=== PATIENT | male | born 1990 | race Caucasian/White ===

== ENCOUNTER 2016-12-28 10:39 | Emergency (ER) | payer OTHER ==
[~2016-12-28] VITALS: Ht 182.9 cm; Wt 68.2 kg
[2016-12-28 10:42] VITALS: BP 125/72; PULSE 63; RESP 10; O2SAT 100
--- NOTE | 2016-12-28 10:50 | ED.REPORT ---
HPI-Extremity Problem Upper Date of Service Dec 28, 2016 ED Provider: Dr. James A right handed 26 year old male presents to the ED complaining of right wrist and right hand pain and swelling onset yesterday at 1430 s/p patient falling after they tripped over a dog on the way out of their house, his outstretched right hand landing onto concrete slab outside the front door. Pain is constant and is rated 5/10 without movement and 7-10/10 with movement. The patient took ibuprofen yesterday reports that his wrist hurt after fall but he could still move it. Today he cannot move it because of the pain. Associated pain in right small and ring finger. He denies any numbness, any other injuries or any other pain at this time. He thinks that he is up to date with tetanus shot. Nursing Notes Stated Complaint: RT HAND INJURY Chief Complaint: Extremity Trauma Nursing Notes Reviewed: Yes Allergies: Coded Allergies: Penicillins (Verified Allergy, Severe, anaphylaxis, 12/28/16) Scheduled PRN Hydrocodone-Acetaminophen 5-325 mg (Hydrocodone-Acetaminophen 5-325 mg) 1 Each Tablet 1 TABLET PO Q4H PRN PRN For Pain General Time Seen by MD: 10:49 Chief Complaint Wrist injury right Hx Obtained From: Patient Arrived By: Walk-in Onset Occurred: Yesterday (yesterday, 1430) Symptom Duration: Since onset Caused by: Fall on ground Location: : Hand right: Wrist right Severity: Current: Pain level 5 out of 10 (without movement) Severity: Maximum: Pain level 10 out of 10 (with movement) Exacerbated by: Range of motion, Movement Recent Healthcare: No recent doctor visit Similar Sx Previous: No Past Medical History Past Medical History none reported. Past Surgical History none reported. Ambulatory Status Independent Review of Systems Musculoskeletal: Reports: Extremity pain (right wrist, right hand , right fingers), Extremity swelling (right wrist) Neurologic: Denies: Numbness Complete sys rev & neg: except as marked. Physical Exam Initial Vital Signs Vital Signs (First) Date Time Temp Pulse Resp B/P Pulse Ox O2 Delivery O2 Flow Rate FiO2 12/28/16 10:42 37.0 63 10 125/72 100 Room Air Initial VS: Reviewed, Vital signs normal General/Constitutional: Well-developed, Well-nourished Head / Eyes: Atraumatic, Normocephalic, PERRL General/Constitutional: Awake, Alert Respiratory / Chest: Atraumatic, Breath sounds NL, Breath sounds = bilat, No respiratory distress, No rales, No rhonchi, No wheezing Cardiovascular: Heart rate NL, Regular rhythm, Heart sounds NL, No gallop, No murmurs, No rubs Right Wrist: Positive: Swelling present... (swelling just distal to the right wrist), Tenderness present... (Pain of right wrist.) Right Hand: Positive: Tenderness present... (Pain to palpation of his whole posterior hand. ) Sensation and movement intact. Skin: Warm, Dry Neurologic: Oriented X3, Speech NL Head / Eyes: Atraumatic, Normocephalic, PERRL, EOMI Abdomen: No guarding, No rebound Interpretation & Diagnostics Lab Results Interpretation Lab Results Interpretation: PROCEDURE: CT WRIST RIGHT W/O CONTRAST ([id number]) IMPRESSION: 1. Moderate displacement of an oblique intra-articular fracture of the dorsal hamate. 2. Nondisplaced oblique fracture involving the base of the 4th metacarpal. 3. Soft tissue swelling of the wrist with a midcarpal effusion. 4. Possible old small avulsion injury of the capitate. Dictated by: Joey Griffith M.D. on 12/28/2016 at 12:09 Approved by: Joey Griffith M.D. on 12/28/2016 at 12:14 X-Ray Interpretation Xray Interpretation: PROCEDURE: X-RAY RIGHT WRIST COMPLETE, MINIMUM THREE VIEWS ([id number]) IMPRESSION: No acute fracture of the right wrist. Dictated by: Joey Griffith M.D. on 12/28/2016 at 10:47 Approved by: Joey Griffith M.D. on 12/28/2016 at 10:50 ADDENDUM: Closer review of the wrist radiographs demonstrates a possible subtle lucency and mild cortical irregularity along the dorsal aspect of the hamate, suspicious for fracture. Clinical correlation with point tenderness overlying this region is recommended. A CT of the wrist would be helpful for further evaluation. Note: Findings were discussed with Kate James at 1204 hours (EST) on 12/28/16. Dictated by: Joey Griffith M.D. on 12/28/2016 at 11:07 Approved by: Joey Griffith M.D. on 12/28/2016 at 11:08 Report status: Addendum REPORT#: [id number] X-Ray Ordered: Wrist right Interpretation / Wet Read by: Interpret - Radiologist Xray Interpretation: PROCEDURE: X-RAY RIGHT HAND, MINIMUM THREE VIEWS ([id number]) IMPRESSION: Possible hamate fracture. Please correlate clinically with focal tenderness. A wrist CT would be helpful for better evaluation, if indicated. Note: Findings were discussed with Coby James at 1204 hours (PST) on 12/28/16. Dictated by: Joey Griffith M.D. on 12/28/2016 at 10:50 Approved by: Joey Griffith M.D. on 12/28/2016 at 11:06 X-Ray Ordered: Hand right Interpretation / Wet Read by: Interpret - Radiologist Procedures Splint Post-Application Eval Splint Post-Application Eval: The patient had an ulnar gutter splint placed by the tech. Sensation and movement were intact after placement. Extremity Condition: Cap refill < 2 sec, Distal sensation intact, Distal motor Intact Re-Eval/Medical Decision Med Decision/Clinical Course The patient presents with an isolated hand injury. On x-ray there is a questionable fracture which was confirmed by CT. I spoke with Dr. Jimenez who recommended an ulnar splint he will follow-up with the patient next week. Source of Hx: Old records Re-Evaluation/Progress #1: Time of Eval: 12:24 Patient Status: Condition improved Re-Evaluation/Progress Note: Rechecked patient and explained test results. Re-Evaluation/Progress #2: Time of Eval: 13:40 Re-Evaluation/Progress Note: Rechecked patient, explained test results, diagnosis, and plan for discharge. Patient understands and agrees with the plan. All questions addressed. Consultation #1: Call Returned at: 12:05 Referral And Information Aide: Agrees with plan Note: Discussed XRay results with Radiology who suggest CT. Consultation #2: Referral / Consult Name: Magdaleno Jimenez DO Consulted With: Orthopedic Call Returned at: 13:33 Note: Discussed patient case with Dr. Jimenez. Counseled Regarding: Diagnosis, Lab results, Need for follow-up, When/why to return to ED Discharge & Departure Impression: Primary Impression: Wrist fracture Disposition: Home Discharge Condition All VS Reviewed: Yes Condition: Improved Patient Instructions: Splint Care (ED), Wrist Fracture in Adults (ED) Additional Instructions: You have moderate displacement of an oblique intra-articular fracture of the dorsal hamate of right wrist and nondisplaced oblique fracture involving the base of the 4th metacarpal of right hand. Call Dr. Magdaleno Jimenez today and follow up with him in a week. Keep the splint on until then. Elevate your right wrist as much as possible. Take pain medication sparingly and with food. Make sure your diet has plenty of extra fiber in it. Referrals: STEFF (PCP) Kate Vu MD (Family) Magdaleno Jimenez DO Scribe Attestation Portions of this note were transcribed by Caden Pham. I, Dr. James personally performed the history, physical exam and medical decision-making; I reviewed and confirmed the accuracy of the information in the transcribed note. Signed by: Ray Funez, 12/28/2016, 1358. copies to: Magdaleno Jimenez DO; NOPCP; Kate Vu MD, Jena M MD Dec 28, 2016 10:49 Caden Pham Dec 28, 2016 10:56
[2016-12-28] MEDS ORDERED: HYDROcodone-APAP 5-325 mg Tablet PO ONE (10:55)
--- NOTE | 2016-12-28 11:52 | DRSVH ---
PROCEDURE: X-RAY RIGHT WRIST COMPLETE, MINIMUM THREE VIEWS ([id number]) INDICATIONS: fall TECHNIQUE: 4 views of the wrist were acquired. COMPARISON: [facility], ANGEL, XR HAND 3VW RT, 12/28/2016, 11:18[facility], 11/23/2016, 10:20. [facility], ANGEL, HAND MIN 3VW (RT), 01/07/2008, 1 7:22. FINDINGS: Bones: No fractures or dislocations. No suspicious bony lesions. Scaphoid view: The scaphoid appears intact. Soft tissues: No suspicious soft tissue calcifications. IMPRESSION: No acute fracture of the right wrist. Dictated by: Joey Griffith M.D. on 12/28/2016 at 10:47 Approved by: Joey Griffith M.D. on 12/28/2016 at 10:50
--- NOTE | 2016-12-28 12:08 | DRSVH ---
PROCEDURE: X-RAY RIGHT HAND, MINIMUM THREE VIEWS ([id number]) INDICATIONS: trauma TECHNIQUE: 3 views of the hand(s) acquired. COMPARISON: [facility], CR, XR WRIST 3VW RT, 12/28/2016, 11:18. [facility], CR, HAND MIN 3VW (RT), 01/07/2008, 17:22. FINDINGS: Bones: Mild heterogeneity is identified along the hamate which is best appreciated on the oblique dyllan ge. This could potentially represent a subtle fracture. Carpal bones are normally aligned. No susp icious bony lesions. There may be an old injury involving the tuft of the 5th digit. Soft tissues: No suspicious soft tissue calcifications. Soft tissue swelling about the dorsum of th e wrist is noted. IMPRESSION: Possible hamate fracture. Please correlate clinically with focal tenderness. A wrist CT would be helpful for better evaluation, if indicated. Note: Findings were discussed with Coby James at 1204 hours (PST) on 12/28/16. Dictated by: Joey Griffith M.D. on 12/28/2016 at 10:50 Approved by: Joey Griffith M.D. on 12/28/2016 at 11:06
--- NOTE | 2016-12-28 13:16 | DRSVH ---
PROCEDURE: CT WRIST RIGHT W/O CONTRAST ([id number]) INDICATIONS: Right wrist injury with possible hamate fracture. TECHNIQUE: Noncontrast 1 mm axial sections acquired through the carpal bones, with coronal and sagittal reformat s. For radiation dose reduction, the following was used: automated exposure control, adjustment of mA and/or kV according to patient size. COMPARISON: [facility], CR, XR WRIST 3VW RT, 12/28/2016, 11:18. [facility], MR, MR WRIST RT WO CON, 11/23/2016, 10:20. FINDINGS: Image quality: Diagnostic. Bones: There is an obliquely oriented fracture involving the dorsal aspect of the hamate that extends into the carpometacarpal joint. Posterior displacement of the smaller fracture fragment is present at the 7 mm. An additional separate fracture is noted involving the base of the 3rd metacarpal. The re is a small well-corticated calcific density identified along the distal aspect of the dorsal capit ate, which probably represents an old injury, rather than an acute injury. The remainder of the carp al bones are otherwise intact. The triquetrum is intact. The distal radius and ulna are within norm al limits. Soft tissues: Prominent soft tissue swelling on the dorsal aspect of the wrist is evident. Please no te that evaluation of the ligamentous, tendinous, and cartilaginous structures is inadequate on CT. There does appear to be a midcarpal joint effusion. No unexpected radiopaque foreign bodies or soft tissue air is evident. IMPRESSION: 1. Moderate displacement of an oblique intra-articular fracture of the dorsal hamate. 2. Nondisplaced oblique fracture involving the base of the 4th metacarpal. 3. Soft tissue swelling of the wrist with a midcarpal effusion. 4. Possible old small avulsion injury of the capitate. Dictated by: Joey Griffith M.D. on 12/28/2016 at 12:09 Approved by: Joey Griffith M.D. on 12/28/2016 at 12:14
[2016-12-28] MEDS ORDERED: HYDR-4003 PO (13:52)
[2016-12-28 14:16] VITALS: BP 110/63; PULSE 76; RESP 12; O2SAT 100
== END 2016-12-28 14:17 | disposition home or self-care (01) ==
LOC: SED 10:39
DX: S62.141A Displaced fracture of body of hamate [unciform] bone, right wrist, initial encounter for closed fracture (principal); S62.344A Nondisplaced fracture of base of fourth metacarpal bone, right hand, initial encounter for closed fracture; W01.0XXA Fall on same level from slipping, tripping and stumbling without subsequent striking against object, initial encounter; Y93.89 Activity, other specified; Y92.009 Unspecified place in unspecified non-institutional (private) residence as the place of occurrence of the external cause; Y99.8 Other external cause status; Z88.0 Allergy status to penicillin